=== PATIENT | female | born 1940 | race Caucasian/White ===

== ENCOUNTER 2025-06-15 08:17 | Outpatient (AMB) | payer MEDICARE, SELFPAY ==
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
--- OUTSIDE RECORDS SUMMARY | 2025-06-15 08:25 | XMS_ITS | Encounter Summary ---
Author Organization [facility] Address [address] [place] [address] Care Team Providers Care Blueprint Reader Name Role Phone Maria Esther Arevalo MD Primary Care Prov ider Reason for Visit * Reason Onset Date Comments Faxed Order Chronic Condition Verification 05/27 Encounter Details Date Type Department Care Team ([facility] st Contact Info) Description 05/27/2025 Telephone Adult Medicine - [place] [address] [place] [phone] Maria Esther Arevalo MD [address] [place] [address] Social History Tobacco Use Types Packs/Day Years Used Date Smoking Tobacco: Former Cigarettes 0 Q uit: 08/04/2002 Smokeless Tobacco: Never Alcohol Use Standard Drinks/Week Comments No 0 (1 standard drink = 0.6 oz pur e alcohol) Housing Instability Answer Date Recorde d Are you worried that in the next 2 months you may not have stable housing? No 04/26/2025 Food Access & Nutrition Answer Date Rec orded Do you have access to a vari ety of food including fruits and vegetables? Yes 04/26/2025 Access to Healthcare Answer Date Record ed Within the last 3 months, roula simon many times did you visit the emergency department for your medical care? 0 04/26/2025 Health Literacy Answer Date Recorded How often do you need to hav e someone help you when you read instructions, pamphlets, or other written material from your doctor or pharmacy? Never 04/26/2025 Caregiver: How often do you need to have someone help you when you read instructions, pamphlets, or other written material from your doctor or pharmacy? Not on file 04/26/2025 Financial Risk Answer Date Recorded How hard is it for you to pa y for the very basics like food, housing, medical care, and air conditioning / heating? Not very hard 04/26/2025 Transportation Answer Date Recorded Has the lack of transportati on kept you from meetings, work, or from getting things needed for daily living? No Has the lack of transportati on kept you from medical appointments or from getting medications? No 04/26/2025 Social Isolation Answer Date Recorded How often do you feel lonely or isolated from those around you? Sometimes 04/26/2025 Food Risk Answer Date Recorded Within the past 12 months we worried whether our food would run out before we got money to buy more. Never true 04/26/2025 Within the past 12 months th e food we bought just didn't last and we didn't have money to get more. Never true 04/26/2025 Dependent Care Answer Date Recorded Do you need help finding or paying for care for your loved ones. For example, residential child care counselor or elderly care for an older adult? No 04/26/2025 Education Answer Date Recorded Do you think completing more education or training, like finishing a GED, going to college, or learning a trade, would be helpful for you? N/A 04/26/2025 Living Situation Answer Date Recorded What is your living situation? Unrecognized valu e 04/26/2025 Comments No Sex and Gender Information Value Date Recorded Sex Assigned at Not on file Legal Sex Female 8:40 AM EST Gender Identity Not on file Sexual Orientation Not on file documented as of this encounter Progress Notes * Tena Irizarry MA - 06/01/2025 4:17 PM EDT Faxed, confirmed and filed in pod c. * Annabel Tellez - 05/27/2025 7:38 AM EDT PLEASE DOCUMENT/ CLOSE MESSAGE WHEN ORDER HAS BEEN FAXED Faxed order Chronic condition verification form received from [facility], requesting signature from provider. Please sign and fax back to [phone]. Order in orange folder documented in this encounter Plan of Treatment Upcoming Encounters Date Type Department Care Team (Late st Contact Info) Description 06/20/2025 10:30 AM EST Office Visit Gastroenterology - [address] [facility] [address] [facility] [address] [place] [phone] Genevieve Sweeney PA [address] [facility] [address] [place] [address] 07/06/2025 10:45 AM EST Office Visit Adult Medicine - [place] [address] [place] [phone] Homa Colin PA [address] [place] [address] 07/12/2025 9:10 AM EST Office Visit [facility] - [facility] [address] [facility] [address] [place] [phone] Ruthie Dumas NP [address] [place] [address] [place] [phone] documented as of this encounter Visit Diagnoses Not on filedocumented in this encounter Additional Health Concerns Assessment Noted Time PHQ-9 Depression Total Score: 0 04/26/20 25 10:21 AM EDT A fall risk assessment has been complete d for the patient 04/26/2025 10:18 AM EDT documented as of this encounter Care Teams Blueprint Reader Relationship Specialty Start Date End Date Maria Esther Arevalo MD [address] [place] [address] PCP - General Internal Medicine 01/23/21 documented as of this encounter
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
--- OUTSIDE RECORDS SUMMARY | 2025-06-15 08:25 | XMS_ITS | Clinical Summary ---
Author Organization [facility] Address [address] [place] [address] Care Team Providers Care Golf Coach Name Role Phone [place]-Ruth Chin MD Primary Care Provider Allergies No known active allergies Medications Medication Sig Dispensed Refills Start Date End Date Status naproxen (NAPROSYN) 250 MG tablet Take 250 mg by mouth 2 (two) times a day with meals. 0 Active simvastatin (ZOCOR) tablet 40 mg Take 40 mg by mouth every night at bedtime. 0 Active albuterol (PROVENTIL HFA;VENTOLIN HFA) 108 (90 Base) MCG/ACT inhaler Inhale 2 puffs into the lungs every 6 (six) hours as needed for wheezing. 0 Active vitamin B-12 (CYANOCOBALAMIN) tablet 1000 mcg Take 1,000 mcg by mouth daily. 0 Active Krill Oil (OMEGA-3) 500 MG CAPS Take 500 mg by mouth daily. 0 Active Calcium Carb-Cholecalciferol (CALCIUM-VITAMIN D3) 500-400 MG-UNIT TABS Take 1 tablet by mouth daily. 0 Active Acetaminophen 500 MG coapsule Take 1,000 mg by mouth every 6 (six) hours as needed for fever. 0 Active apixaban (ELIQUIS) 5 MG TABS tablet Take 5 mg by mouth every 12 (twelve) hours. 0 Active hydroCHLOROthiazide (HYDRODIURIL) tablet 12.5 mg Take 12.5 mg by mouth daily. 0 Active Active Problems Problem Noted Date Diagnosed Date Paroxysmal A-fib 10/20/2019 Cerebrovascular accident (CVA) 04/12/2019 Overview: Overview: Likely from PAFib Transient ischemic attack (T IA), and cerebral infarction without residual deficits(V12.54) 04/12/2019 History of endometrial cancer 07/21/2017 Overview: Overview: Serous carcinoma, 2012. Had hysterectomy, radiation x 3, chemo x 3 Overview: 11/27/2017: no clinical evidence of disease; CA-124 = 4. Social History Tobacco Use Types Packs/Day Years Used Date Smoking Tobacco: Never Assessed Sex and Gender Information Value Date Recorded Sex Assigned at Not on file Gender Identity Not on file Sexual Orientation Not on file Last Filed Vital Signs Vital Sign Reading Time Taken Comments Blood Pressure 148/84 04/05/2020 10:33 AM EDT Pulse 75 04/05/2020 10:33 AM EDT Temperature 36.5 C (97.7 F) 04/05/2020 10:33 AM EDT Respiratory Rate - - Oxygen Saturation - - Inhaled Oxygen Concentration - - Weight 70.8 kg (156 lb) 04/05/2020 10:33 AM EDT Height 160 cm (5' 3 ) 04/05/2020 10:33 AM EDT Body Mass Index 27.63 04/05/2020 10:33 AM EDT Plan of Treatment Health Maintenance Due Date Last Done Comments COVID-19 Vaccine (#1) [birth year]26/1941 Depression Screening 1952 Preventative Health Evaluation 1958 DTap / Tdap / Td (1 - Tdap) 10/25/1959 Shingrix-Zoster Vaccine (1 of 2) 1990 Fall Risk Assessment 2005 Osteoporosis Screening (DEXA Scan) 2005 Pneumococcal Vaccine (1 of 1 - PCV) 2005 RSV Adult > 60+ Yrs or Pregn ant (1 - 1-dose 75+ series) 10/25/2015 Influenza Vaccine (#1) 2025 Hepatitis B Vaccines Aged Out No long er eligible based on patient's age to complete this topic RSV Ped < 20 months Aged Out No longe r eligible based on patient's age to complete this topic Care Teams Golf Coach Relationship Specialty Start Date End Date [place]-Ruth Chin MD PCP - General Internal Medicine 04/05/20
[2025-06-15 08:28] VITALS: BMI 23.4
== END 2025-06-15 09:13 | disposition home or self-care (01) ==
LOC: HO.HPHYS 08:18
PROVIDERS: PCP Internal Medicine; Visit Provider Physical Medicine & Rehabilitation
DX: M25.551 Pain in right hip (principal); M54.41 Lumbago with sciatica, right side; M48.062 Spinal stenosis, lumbar region with neurogenic claudication; M54.81 Occipital neuralgia; M53.0 Cervicocranial syndrome
CPT/HCPCS: 64405; 99214

== ENCOUNTER → 2025-06-15 08:17 | Outpatient (BNVA) | payer MEDICARE, SELFPAY | PROVIDERS: PCP Internal Medicine; Visit Provider Physical Medicine & Rehabilitation | DX: M53.0 Cervicocranial syndrome (principal); M54.81 Occipital neuralgia; M25.551 Pain in right hip; M54.41 Lumbago with sciatica, right side; M48.062 Spinal stenosis, lumbar region with neurogenic claudication | CPT/HCPCS: 64405; 99212; J2003; J3301 ==

== ENCOUNTER 2025-06-20 08:19 | Outpatient (REF) | payer MEDICARE, SELFPAY ==
--- NOTE | ~2025-06-20 | XR_ITS ---
EXAMINATION: X-ray lumbar spine CLINICAL INFORMATION: Low back pain COMPARISON: None TECHNIQUE: 5 views FINDINGS: Mild L4-5 anterolisthesis. Vertebral body heights are maintained. No evidence of acute fracture. Multilevel mild disc degeneration. Multilevel facet degeneration. No suspicious bony lesions. Surgical clips projected over the pelvis. Round calcification in the right upper quadrant could reflect a gallstone. XR/XR lumbar spine 4V min IMPRESSION: Lumbar spondylosis. No evidence of acute osseous findings. Electronically signed by: Tomi Carter MD 06/20/2025 09:27 AM [facility]
--- NOTE | ~2025-06-20 | XR_ITS ---
EXAMINATION: XR HIP, RIGHT CLINICAL INFORMATION: M25.551 - Pain in right hip COMPARISON: None available. TECHNIQUE: AP pelvis and 2 views of the right hip. FINDINGS: No fracture, dislocation, or suspicious bone lesion. There is normal alignment. Very mild osteoarthrosis noted in both hip joints symmetrically. Normal femoral head contours without evidence of AVN. Normal acetabular coverage. Mild degenerative changes in the the SI joints. Degenerative changes in the lower lumbar spine. Soft tissues demonstrate numerous surgical clips along the pelvic sidewalls and overlying the sacral wings. XR/XR hip RT w [id number] IMPRESSION: 1. No acute bony or soft tissue abnormalities. 2. 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 Electronically signed by: Titi Langston MD 06/20/2025 09:22 AM [facility]
== END 2025-06-20 08:20 | disposition home or self-care (01) ==
LOC: HO.XRAY 08:19
PROVIDERS: Visit Provider Physical Medicine & Rehabilitation
DX: M48.062 Spinal stenosis, lumbar region with neurogenic claudication (principal); M25.551 Pain in right hip; M54.50 Low back pain, unspecified
CPT/HCPCS: 72110; 73502

== ENCOUNTER → 2025-06-20 08:25 | Outpatient (BNV) | payer MEDICARE, SELFPAY | PROVIDERS: Visit Provider Radiology Diagnostic Radiology | DX: M47.816 Spondylosis without myelopathy or radiculopathy, lumbar region (principal); M16.0 Bilateral primary osteoarthritis of hip | CPT/HCPCS: 72110; 73502 ==